=== PATIENT | female | born 1960 | race American Indian/Alaskan Native ===

== ENCOUNTER 2021-04-04 07:29 | Day surgery (SDC) | payer BC ==
--- NOTE | 2021-04-04 08:19 | Short Stay Summary ---
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) Past Surgical History: hysterectomy Social history: no significant social history - Allergies and Medications Current Medications: Allergies No Known Allergies Allergy (Unverified 04/04/21 08:13) - Physical exam General appearance: no acute distress Integumentary: no rash, no growths HEENT: Atraumatic Lungs: Normal air movement Breasts: deferred Heart: Regular rate Gastrointestinal: normal Female Genitourinary: deferred Rectal Exam: deferred Extremities: no No edema - Brief post op/procedure progress note Date of procedure: 04/04/21 Pre-op diagnosis: Venous compression Post-op diagnosis: same Procedure: Bilateral lower extremity venogram, intravascular ultrasound, placement of kissing bilateral venous stents Anesthesia: MAC Surgeon: DARLENE ROJAS Estimated blood loss: minimal Pathology: none Condition: stable - Disposition Condition at discharge: Good Disposition: 01 HOME / SELF CARE / HOMELESS Short Stay Discharge Plan Activity: advance as tolerated Weight Bearing Status: Weight Bear as Tolerated Diet: regular Wound: keep clean and dry, per your surgeon's advice Follow up with: MAKAYLA ALFONSO MD [Primary Care Provider] - 7 Days
[2021-04-04] MEDS ORDERED: MIDAZOLAM 2 MG/2 ML INJ ONE (08:35)
[2021-04-04] MEDS ORDERED: ePHEDrine SULFATE 50 MG/1 ML INJ ONE (08:36)
[2021-04-04] MEDS ORDERED: fentaNYL 100 MCG/2 ML INJ ONE (08:36)
[2021-04-04] MEDS ORDERED: KETAMINE/STERILE WATER 50 MG/ML SYRINGE ONE (08:36)
[2021-04-04] MEDS ORDERED: SODIUM CHLORIDE 0.9% 500 ML 500 ML IV SCH (09:00)
[2021-04-04 09:12] LABS: Hematocrit 33.9 % (30.3-42.9); Hemoglobin 11.5 gm/dl (10.1-14.3); Mean Corpuscular HGB Conc 34 % (30-34); Mean Corpuscular Volume 93 fl (79-97); Platelet Count 329 K/mm3 (140-440); Red Blood Count 3.64 M/mm3 (3.65-5.03); Red Cell Distribution Width 13.1 % (13.2-15.2)
[2021-04-04 09:25] LABS: Hemolysis Index 215
[2021-04-04 09:38] LABS: BUN/Creatinine Ratio TNR; Blood Urea Nitrogen TNR mg/dL (7-17); Calcium TNR mg/dL (8.4-10.2)
[2021-04-04 10:11] LABS: Blood Urea Nitrogen 12 mg/dL (7-17); Calcium 9.8 mg/dL (8.4-10.2); Hemolysis Index 22
[2021-04-04 10:13] LABS: BUN/Creatinine Ratio 24
[2021-04-04] MEDS ORDERED: HEPARIN 10,000 UNITS/10 ML VIAL ONE (10:15)
[2021-04-04] MEDS ORDERED: HEPARIN/NS 5000 UNIT/500ML 1,000 ML IR ONE (10:15)
[2021-04-04] MEDS ORDERED: ceFAZolin/Water 2 GM/20 ML 2 GM/20 ML SYRINGE IV ONE (10:16)
[2021-04-04 10:17] LABS: INR 0.96 (0.87-1.13)
[2021-04-04 10:18] LABS: Partial Thromboplastin Time 23.8 Sec. (24.2-36.6)
[2021-04-04] MEDS: LIDOCAINE (2%) 20 MG/1 ML VIAL 20 ML MDV INFILTRATI ONE ×2 (11:01→11:03)
--- NOTE | 2021-04-04 11:28 | Operative Report ---
Operative Report Operative Report: Exam: Bilateral lower extremity venogram, intravascular ultrasound, placement of kissing venous stents Clinical indication: Patient with a history of bilateral lower extremity swelling, pain, who underwent diagnostic venogram which demonstrates significant stenosis in her common and external iliac veins bilaterally. Patient with a history of tracheal stenosis requiring anesthesia monitoring during procedure Date: 04/04/2021 Procedure: Following an explanation of the risk, benefits and alternatives; wr itten informed consent was obtained. The patient was brought to the angiographic suite and placed in supine position on the examination table. Initial ultrasound evaluation of her legs demonstrated patent proximal femoral veins. The patient's legs were prepped and draped in the usual sterile fashion. 1% lidocaine was used for anesthesia. Under ultrasound guidance, the proximal right femoral vein was cannulated using a 7 cm 18-gauge needle. A 0.035 guidewire was advanced centrally. The needle was removed and a 5 Egyptian sheath placed. Access to the proximal left femoral vein was obtained in a similar fashion and the 5 Egyptian sheath again used as a trocar. Both 5 Egyptian access sites were upsized over the guidewires to 10 Egyptian sheaths. Venogram was performed through both sheaths simultaneously. This demonstrates significant stenosis in the common and external iliac veins bilaterally. Intravascular ultrasound was then performed. Imaged vessels include the IVC, right common iliac vein, right external iliac vein, right common femoral vein, left common iliac vein, left external iliac vein and left common femoral vein. There is a 50% stenosis in the left common iliac vein, 70% separate stenosis in the left external iliac vein, a 60% stenosis in the right common iliac vein and a separate 70 to 80% stenosis in the right external iliac vein. The patient's veins below this level are somewhat diminutive. A 14 mm x 150 mm Abre stent was advanced through the right sheath, a 14 mm x 150 mm Abre stent was advanced through the left sheath. The stents were deployed in kissing fashion to extend from the distal IVC to cover both the common and external iliac vein lesions bilaterally. Post stent placement venoplasty demonstrated reduction of the stenosis to less than 10%. At this point, the catheters, guidewires and sheaths were removed and hemostasis achieved using manual compression. Sterile dressings were applied. The patient tolerated the procedure well. There were no immediate postprocedure complications. Sedation was provided by anesthesia services. Continuous cardiopulmonary monitoring was utilized. Impression: 1) Bilateral lower extremity venogram demonstrating stenosis in the common and external iliac veins bilaterally. 2) Intravascular ultrasound of the IVC, bilateral common iliac vein, bilateral external iliac vein and bilateral common femoral vein demonstrate 50% left common iliac vein stenosis, separate 70% left external iliac vein stenosis, 60% right common iliac vein stenosis and separate 70 to 80% stenosis in the right external iliac vein. 3) Treatment of the bilateral common and external iliac vein stenoses using kissing 14 mm x 150 mm Abre stents. Post and placement imaging demonstrated reduction of the stenosis to less than 10%. Given the degree of stenosis, the patient will be placed on anticoagulation for 3 months.
[2021-04-04] MEDS ORDERED: HYDROcodone/ACETAMINOPHEN 5-325 MG TAB ONE (12:09)
[2021-04-04] MEDS ORDERED: HYDROcodone/ACETAMINOPHEN 5-325 MG TAB PO ONE (12:14)
--- NOTE | 2021-04-04 12:21 | Anesthesia Day of Surgery ---
Anesthesia Day of Surgery - Day of Surgery Patient Examined: Yes Patient H&P Reviewed: Yes Patient is NPO: Yes Beta Blockers: No Cardiac Clearance: No Pulmonary Clearance: No Helder's Test: N/A
--- NOTE | 2021-04-04 12:21 | Anesthesia Consultation ---
Anesthesia Consult and Med Hx Date of service: 04/04/21 - Airway Anesthetic Teeth Evaluation: Good ROM Head & Neck: Adequate Mental/Hyoid Distance: Adequate Mallampati Class: Class II Intubation Access Assessment: Probably Good - Pulmonary Exam CTA: Yes - Cardiac Exam Cardiac Exam: RRR - Pre-Operative Health Status ASA Pre-Surgery Classification: ASA3 Proposed Anesthetic Plan: IV Sedation - Pulmonary Hx Smoking: No Hx Respiratory Symptoms: No (H/o tracheal stenosis, asymptomatic.) - Cardiovascular System Hx Hypertension: No Hx Cardia Arrhythmia: No - Central Nervous System Hx Neuromuscular Disorder: No - Gastrointestinal Hx Gastroesophageal Reflux Disease: No - Endocrine Hx Renal Disease: No Hx Liver Disease: No Hx Insulin Dependent Diabetes: No Hx Non-Insulin Dependent Diabetes: No - Hematic Hx Anemia: Yes - Other Systems Hx Cancer: No Hx Obesity: No - Additional Comments Anesthesia Medical History Comments: No GAC. No FHAC
[2021-04-04] MEDS ORDERED: ESMOLOL 100 MG/10 ML INJ IV ONE (12:30)
--- NOTE | 2021-04-04 13:05 | Post Anesthesia Evaluation ---
- Post Anesthesia Evaluation Patient Participated: Yes Airway Patent: Yes Stable Respiratory Function: Yes Nausea/Vomiting: No Temp > 96.8F: Yes Pain Manageable: Yes Adequeate Hydration: Yes Anesthesia Complications: No Block Receding Appropriately: Not Applicable Patient on Ventilator: No
[2021-04-04] MEDS ORDERED: APIXABAN 5 MG TAB ONE (13:45)
[2021-04-04 14:56] VITALS: BP 155/85
== END 2021-04-04 07:30 | disposition home or self-care (01) ==
LOC: CATHLABREC 07:29
PROVIDERS: ATTEND Radiology Diagnostic Radiology
DX: I87.1 Compression of vein (principal); I87.001 Postthrombotic syndrome without complications of right lower extremity; Z79.899 Other long term (current) drug therapy; Z98.890 Other specified postprocedural states
CPT/HCPCS: 36415; 37238; 37239; 37252; 37253; 75822; 80048; 85027; 85610; 85730; C1753; C1769; C1876; C1894; J0690; J1644; J2250; J3490; J7040; J2704; J3010; Q9967